=== PATIENT | male | born 1975 | race Caucasian/White ===

== ENCOUNTER 2022-01-05 15:38 | Emergency (ER) | payer MEDICAID ==
[~2022-01-05] VITALS: Ht 177.8 cm; Wt 90.0 kg
[2022-01-05] MEDS ORDERED: KETOROLAC 60MG/2ML VIAL IM STA (20:36)
[2022-01-05] MEDS ORDERED: CHLORDIAZEPOXIDE 10MG CAPSULE PO ONE (20:45)
[2022-01-05 21:19] LABS: BASOPHILS % 0.6 % (0.0-2.0); EOSINOPHILS % 1.3 % (0.0-5.0); HEMATOCRIT. 39.6 % (42.0-52.0); HEMOGLOBIN. 13.2 g/dL (14.0-18.0); LYMPHOCYTES % 18.3 % (20.0-50.0); MEAN CORPUSCULAR HEMOGLOBIN 28.7 pg (28.0-32.0); MEAN CORPUSCULAR VOLUME 86.3 fL (80.0-94.0); MONOCYTES % 7.2 % (2.0-8.0); NEUTROPHILS % 72.6 % (40.0-76.0); PLATELET 339 x1000/uL (130-400); RED BLOOD CELL COUNT 4.59 mill/uL (4.7-6.1); RED CELL DISTRIBUTION WIDTH 13.6 % (11.6-14.6)
[2022-01-05 21:20] LABS: CHLORIDE 112 mEq/L (98-107)
[2022-01-05 21:26] LABS: ETHANOL BLOOD < 10 mg/dL
[2022-01-05 22:54] LABS: *AMPHETAMINES SCREEN URINE NEGATIVE (NEGATIVE)
[2022-01-05 22:55] LABS: *BARBITURATES SCREEN URINE NEGATIVE (NEGATIVE); *BENZODIAZEPINES SCREEN URINE PRESUMTIVE POSITIVE (NEGATIVE); *COCAINE SCREEN URINE NEGATIVE (NEGATIVE); METHADONE URINE SCREEN NEGATIVE (NEGATIVE); OPIATES URINE SCREEN NEGATIVE (NEGATIVE); PHENCYCLIDINE URINE SCREEN NEGATIVE (NEGATIVE)
[2022-01-05 22:56] LABS: CANNABINOID URINE SCREEN NEGATIVE (NEGATIVE)
[2022-01-05 23:00] VITALS: BP 128/59
[2022-01-05] MEDS ORDERED: MORPHINE SULFATE 4 MG/ML CPJ (NOT FOR IM USE) IV ONE (23:15)
[2022-01-05] MEDS ORDERED: HYDROCODONE/ACETAMINOPHEN 5/325MG TABLET PO ONE (23:30)
== END 2022-01-05 23:35 | disposition home or self-care (01) ==
LOC: ER 15:38
DX: M25.572 Pain in left ankle and joints of left foot (principal); M25.511 Pain in right shoulder; M54.89 Other dorsalgia; M79.18 Myalgia, other site; R07.81 Pleurodynia; E87.6 Hypokalemia; V00-Y99 External causes of morbidity; Y93.89 Activity, other specified; Y92.85 Railroad track as the place of occurrence of the external cause; F10.20 Alcohol dependence, uncomplicated; Y90.0 Blood alcohol level of less than 20 mg/100 ml; F15.10 Other stimulant abuse, uncomplicated; I10 Essential (primary) hypertension; Z87.81 Personal history of (healed) traumatic fracture
CPT/HCPCS: 36415; 71045; 73600; 80053; 80305; 80320; 85025; 96372; 99284; J1885; G0480